=== PATIENT | female | born 1985 | race Hispanic/Latino ===

== ENCOUNTER 2021-04-04 17:50 | Emergency (ER) | payer OTHER ==
[2021-04-04 18:51] LABS: #Eosinphils 0.2 10x3/uL (0.0-0.5); #Monocytes 0.5 10x3/uL (0.0-1.1); #Neutrophils 5.5 10x3/uL (1.5-8.4); %Basophils 0.3 % (0.0-2.0); %Eosinophils 2.3 % (0.0-6.0); %Lymphocytes 30.6 % (18.0-47.0); %Monocytes 5.4 % (0.0-10.0); %Neutrophils 61.2 % (40.0-75.0); Hemoglobin 12.6 g/dL (12.0-15.5); Mean Corpuscular HGB CONC 32.9 g/dL (32.0-36.0); Mean Corpuscular Hemoglobin 27.6 pg (27.0-33.0); Mean Corpuscular Volume 83.8 fl (81.6-98.3); Mean Platelet Volume 9.3 fl (7.4-10.4); Platelet Count 340 10x3/uL (150-450); RBC Distribution Width 13.8 % (11.5-14.5); Red Blood Cell (RBC) Count 4.57 10x6/uL (3.90-5.03)
[2021-04-04 19:02] LABS: BHCG - Serum Negative (NEGATIVE); Pregs Control Background? CLEAR/WHITE (CLR/WHITE); Pregs Control Bar Appear? YES (CONTROL BAR)
[2021-04-04] MEDS ORDERED: diphenhydrAMINE 50 MG/ML VIAL ONE (19:04)
[2021-04-04] MEDS ORDERED: Metoclopramide HCl 10 MG/2 ML VIAL ONE (19:05)
[2021-04-04] MEDS ORDERED: Ketorolac Tromethamine 30 MG/ML VIAL ONE (19:05)
[2021-04-04 19:17] LABS: ALT (SGPT) 30 U/L (8-55); AST (SGOT) 25 U/L (5-34); Albumin 3.8 g/dL (3.5-5.0); Alkaline Phosphatase 78 U/L (40-110); Anion Gap 14 mmol/L (10-20); BUN (Urea Nitrogen) 9 mg/dL (7.0-18.7); Bilirubin, Total 0.2 mg/dL (0.2-1.2); Calc. Creatinine Clearance 0 mL/min (70-130); Calcium 9.3 mg/dL (7.8-10.44); Carbon Dioxide 22 mmol/L (22-29); Chloride 106 mmol/L (98-107); Globulin 3.5 g/dL (2.4-3.5); Glucose 124 mg/dL (70-105); Protein, Total 7.3 g/dL (6.0-8.3); Sodium 139 mmol/L (136-145)
[2021-04-04] MEDS ORDERED: Potassium Chloride 20 MEQ TAB ONE (19:40)
[2021-04-04] MEDS ORDERED: Magnesium 2 GM/50 ML BAG (IN WATER) ONE (20:39)
[2021-04-04] MEDS ORDERED: Dexamethasone 10 MG/ML VIAL ONE (20:39)
== END 2021-04-04 20:25 | disposition home or self-care (01) ==
LOC: CSHERS 17:50
DX: G43.109 Migraine with aura, not intractable, without status migrainosus (principal); E87.6 Hypokalemia; I10 Essential (primary) hypertension
CPT/HCPCS: 70450; 80053; 83735; 84703; 85025; 94760; 96365; 96366; 96368; 96375; J1100; J1200; J1885; J2765; J3475

== ENCOUNTER 2021-08-23 08:37 | Outpatient (CLI) | payer BC ==
[2021-08-23 10:27] LABS: Anion Gap 15 mmol/L (10-20); BUN (Urea Nitrogen) 11 mg/dL (7.0-18.7); Calc. Creatinine Clearance 0 mL/min (70-130); Carbon Dioxide 23 mmol/L (22-29); Chloride 104 mmol/L (98-107); Glucose 101 mg/dL (70-105); Potassium 3.6 mmol/L (3.5-5.1); Sodium 138 mmol/L (136-145)
[2021-08-23 10:31] LABS: BHCG - Serum Negative (NEGATIVE); Pregs Control Background? CLEAR/WHITE (CLR/WHITE); Pregs Control Bar Appear? YES (CONTROL BAR)
[2021-08-23 19:51] LABS: SARS-CoV-2 PCR by NAA Not Detected (NotDetected)
== END 2021-08-23 08:38 | disposition home or self-care (01) ==
LOC: CSHLAB 08:37
PROVIDERS: ATTEND Surgery
DX: Z01.818 Encounter for other preprocedural examination (principal); Z20.822 Contact with and (suspected) exposure to COVID-19; K42.9 Umbilical hernia without obstruction or gangrene; E66.01 Morbid (severe) obesity due to excess calories
CPT/HCPCS: 80048; 84703; 93005; 93010; U0003; U0005

== ENCOUNTER 2021-09-27 08:44 | Outpatient (CLI) | payer BC ==
[2021-09-27 09:53] LABS: BHCG - Serum POSITIVE (NEGATIVE); Pregs Control Background? CLEAR/WHITE (CLR/WHITE); Pregs Control Bar Appear? YES (CONTROL BAR)
== END 2021-09-27 08:45 | disposition home or self-care (01) ==
LOC: CSHLAB 08:44
PROVIDERS: ATTEND Surgery
DX: Z01.812 Encounter for preprocedural laboratory examination (principal); Z20.822 Contact with and (suspected) exposure to COVID-19; K42.9 Umbilical hernia without obstruction or gangrene; E66.01 Morbid (severe) obesity due to excess calories
CPT/HCPCS: 84703; U0003; U0005

== ENCOUNTER 2021-10-11 18:38 | Emergency (ER) | payer BC ==
[2021-10-11 21:53] LABS: Bilirubin Neg (Negative); Blood, Urine 25 (Negative); Clarity Clear (Clear); Glucose, Urine (Dipstick) Normal (Negative); Ketone, Urine Negative (Negative); Leukocyte Negative (Negative); Nitrite Negative (Negative); Protein, Urine (Dipstick) Negative (Neg-Trace); Specific Gravity, Urine 1.015 (1.002-1.036); Urobilinogen Normal mg/dL (Less than 2)
[2021-10-11 21:55] LABS: ALT (SGPT) 45 U/L (8-55); AST (SGOT) 29 U/L (5-34); Albumin 3.6 g/dL (3.5-5.0); Alkaline Phosphatase 63 U/L (40-110); Anion Gap 12 mmol/L (10-20); BUN (Urea Nitrogen) 12 mg/dL (7.0-18.7); Bilirubin, Total 0.2 mg/dL (0.2-1.2); Calc. Creatinine Clearance 0 mL/min (70-130); Calcium 8.7 mg/dL (7.8-10.44); Carbon Dioxide 21 mmol/L (22-29); Chloride 105 mmol/L (98-107); Globulin 2.7 g/dL (2.4-3.5); Glucose 112 mg/dL (70-105); Potassium 3.3 mmol/L (3.5-5.1); Protein, Total 6.3 g/dL (6.0-8.3); Sodium 135 mmol/L (136-145)
[2021-10-11 22:09] LABS: #Eosinphils 0.1 10x3/uL (0.0-0.5); #Monocytes 0.7 10x3/uL (0.0-1.1); #Neutrophils 3.6 10x3/uL (1.5-8.4); %Basophils 0.3 % (0.0-2.0); %Lymphocytes 33.1 % (18.0-47.0); %Monocytes 10.4 % (0.0-10.0); %Neutrophils 53.7 % (40.0-75.0); Hemoglobin 11.8 g/dL (12.0-15.5); Mean Corpuscular HGB CONC 33.9 g/dL (32.0-36.0); Mean Corpuscular Hemoglobin 29.3 pg (27.0-33.0); Mean Corpuscular Volume 86.4 fl (81.6-98.3); Mean Platelet Volume 9.3 fl (7.4-10.4); Platelet Count 272 10x3/uL (150-450); RBC Distribution Width 12.7 % (11.5-14.5); Red Blood Cell (RBC) Count 4.03 10x6/uL (3.90-5.03); White Blood Cell (WBC) Count 6.7 10x3/uL (3.5-10.5)
[2021-10-11 22:10] LABS: Bacteria/HPF Rare-Few HPF (None Seen); RBC/HPF 0-3 HPF (0-3); Squamous Epithelial 0-3 HPF (0-3); WBC/HPF None Seen HPF (0-3)
== END 2021-10-11 22:55 | disposition home or self-care (01) ==
LOC: CSHERS 18:38
DX: O20.0 Threatened abortion (principal); O16.1 Unspecified maternal hypertension, first trimester; Z3A.01 Less than 8 weeks gestation of pregnancy
CPT/HCPCS: 36415; 76856; 80053; 81003; 81015; 84702; 85025; 86900; 86901

== ENCOUNTER 2021-10-18 15:36 | Emergency (ER) | payer BC ==
[2021-10-18 16:51] LABS: #Eosinphils 0.2 10x3/uL (0.0-0.5); #Monocytes 0.8 10x3/uL (0.0-1.1); #Neutrophils 3.7 10x3/uL (1.5-8.4); %Basophils 0.6 % (0.0-2.0); %Eosinophils 2.4 % (0.0-6.0); %Lymphocytes 33.9 % (18.0-47.0); %Monocytes 10.7 % (0.0-10.0); %Neutrophils 52.3 % (40.0-75.0); Hemoglobin 13.3 g/dL (12.0-15.5); Mean Corpuscular HGB CONC 34.2 g/dL (32.0-36.0); Mean Corpuscular Hemoglobin 29.4 pg (27.0-33.0); Mean Corpuscular Volume 85.9 fl (81.6-98.3); Mean Platelet Volume 9.3 fl (7.4-10.4); Platelet Count 296 10x3/uL (150-450); RBC Distribution Width 12.8 % (11.5-14.5); Red Blood Cell (RBC) Count 4.53 10x6/uL (3.90-5.03); White Blood Cell (WBC) Count 7.1 10x3/uL (3.5-10.5)
[2021-10-18 17:39] LABS: Bilirubin Neg (Negative); Blood, Urine 150 (Negative); Clarity Clear (Clear); Glucose, Urine (Dipstick) Normal (Negative); Ketone, Urine Negative (Negative); Leukocyte Negative (Negative); Nitrite Negative (Negative); Protein, Urine (Dipstick) Negative (Neg-Trace); Specific Gravity, Urine 1.005 (1.002-1.036); Urobilinogen Normal mg/dL (Less than 2)
[2021-10-18 17:59] LABS: Bacteria/HPF Rare-Few HPF (None Seen); RBC/HPF 0-3 HPF (0-3); Squamous Epithelial 0-3 HPF (0-3); WBC/HPF 0-3 HPF (0-3)
== END 2021-10-18 18:37 | disposition home or self-care (01) ==
LOC: CSHERS 15:36
DX: O20.9 Hemorrhage in early pregnancy, unspecified (principal); O16.1 Unspecified maternal hypertension, first trimester; Z3A.01 Less than 8 weeks gestation of pregnancy
CPT/HCPCS: 81003; 81015; 84702; 85025; 86900; 86901

== ENCOUNTER 2021-10-31 00:21 | Emergency (ER) | payer BC ==
[2021-10-31 01:01] LABS: Bilirubin Neg (Negative); Blood, Urine 250 (Negative); Clarity Clear (Clear); Glucose, Urine (Dipstick) Normal (Negative); Ketone, Urine Negative (Negative); Leukocyte Negative (Negative); Nitrite Negative (Negative); Protein, Urine (Dipstick) 30 mg/dl (Neg-Trace); Specific Gravity, Urine 1.005 (1.002-1.036); Urobilinogen Normal mg/dL (Less than 2); pH, Urine 6.5 (5.0-9.0)
[2021-10-31] MEDS ORDERED: traMADol HCl 50 MG TAB ONE (01:17)
[2021-10-31 01:30] LABS: Bacteria/HPF Rare-Few HPF (None Seen); Squamous Epithelial None Seen HPF (0-3); WBC/HPF None Seen HPF (0-3)
== END 2021-10-31 03:03 | disposition home or self-care (01) ==
LOC: CSHERS 00:21
DX: O03.9 Complete or unspecified spontaneous abortion without complication (principal); I10 Essential (primary) hypertension
CPT/HCPCS: 36415; 76856; 81003; 81015; 84702

== ENCOUNTER 2021-11-15 09:43 | Outpatient (CLI) | payer BC | END 2021-11-15 09:44 | disposition home or self-care (01) | LOC: CSHLAB 09:43 | PROVIDERS: ATTEND Surgery | DX: K42.9 Umbilical hernia without obstruction or gangrene (principal); E66.01 Morbid (severe) obesity due to excess calories; Z20.822 Contact with and (suspected) exposure to COVID-19 | CPT/HCPCS: 87811 ==

== ENCOUNTER 2021-11-18 09:06 | Day surgery (SDC) | payer BC ==
[2021-11-16 12:13] VITALS: BMI 40.8
[2021-11-18] MEDS ORDERED: Bupivacaine PF 0.5% 30 ML VIAL ONE (09:51)
[2021-11-18] MEDS ORDERED: EPINEPHrine 1 MG/ML AMP ONE (09:51)
[2021-11-18] MEDS ORDERED: CEFAZOLIN 2 GM VIAL ONE (10:20)
[2021-11-18] MEDS ORDERED: PROPOFOL 20 ML ONE (10:40)
[2021-11-18] MEDS ORDERED: Lidocaine 1% PF 5 ML VIAL ONE (10:41)
[2021-11-18] MEDS ORDERED: Rocuronium Bromide 10 MG/ML (10ML VIAL) ONE (10:41)
[2021-11-18] MEDS ORDERED: Fentanyl 100 MCG/2 ML VIAL ONE ×3 (10:41→12:51)
[2021-11-18] MEDS ORDERED: Acetaminophen 325 MG TAB PO PRN (10:54)
[2021-11-18] MEDS ORDERED: HYDROcodone/Acetaminophen 5/325 mg Tablet PO PRN (10:54)
[2021-11-18] MEDS ORDERED: Ondansetron PF 4 MG/2 ML Vial ONE (11:01)
[2021-11-18] MEDS ORDERED: Dexamethasone 4 mg/ml Vial ONE (11:01)
[2021-11-18] MEDS ORDERED: Ketorolac Tromethamine 30 MG/ML VIAL ONE (11:02)
[2021-11-18] MEDS ORDERED: Glycopyrrolate 0.2 MG/ML 5 ML SYRINGE ONE (12:00)
[2021-11-18] MEDS ORDERED: HYDROcodone/Acetaminophen 5/325 mg Tablet ONE (14:03)
== END 2021-11-18 14:35 | disposition home or self-care (01) ==
LOC: CSHSDC 09:06
PROVIDERS: ATTEND Surgery
PROC: 0WUF4JZ Supplement Abdominal Wall with Synthetic Substitute, Percutaneous Endoscopic Approach (ICD-10-PCS; principal; 2021-11-18)
DX: K43.2 Incisional hernia without obstruction or gangrene (principal); K42.9 Umbilical hernia without obstruction or gangrene; I10 Essential (primary) hypertension; R73.03 Prediabetes; G43.909 Migraine, unspecified, not intractable, without status migrainosus; F41.9 Anxiety disorder, unspecified; E66.01 Morbid (severe) obesity due to excess calories; Z68.41 Body mass index [BMI] 40.0-44.9, adult; Z79.899 Other long term (current) drug therapy; Z20.822 Contact with and (suspected) exposure to COVID-19; Z98.890 Other specified postprocedural states
CPT/HCPCS: C1713; J0171; J0690; J1100; J1885; J2405; J2704; J3010; S0020

== ENCOUNTER 2022-02-11 17:22 | Emergency (ER) | payer BC ==
[~2022-02-11 17:22] MED LIST: Iopamidol 370 76% 100 ML VIAL ONE
[2022-02-11 18:20] LABS: #Basophils 0.1 10x3/uL (0.0-0.2); #Eosinphils 0.3 10x3/uL (0.0-0.5); #Monocytes 0.7 10x3/uL (0.0-1.1); #Neutrophils 3.5 10x3/uL (1.5-8.4); %Basophils 0.9 % (0.0-2.0); %Eosinophils 4.7 % (0.0-6.0); %Lymphocytes 30.6 % (18.0-47.0); %Monocytes 10.7 % (0.0-10.0); %Neutrophils 52.8 % (40.0-75.0); Hemoglobin 13.7 g/dL (12.0-15.5); Mean Corpuscular HGB CONC 34.4 g/dL (32.0-36.0); Mean Corpuscular Hemoglobin 28.2 pg (27.0-33.0); Mean Corpuscular Volume 82.1 fl (81.6-98.3); Mean Platelet Volume 9.1 fl (7.4-10.4); Platelet Count 344 10x3/uL (150-450); RBC Distribution Width 13.2 % (11.5-14.5); Red Blood Cell (RBC) Count 4.85 10x6/uL (3.90-5.03); White Blood Cell (WBC) Count 6.6 10x3/uL (3.5-10.5)
[2022-02-11 18:37] LABS: ALT (SGPT) 42 U/L (8-55); AST (SGOT) 33 U/L (5-34); Alkaline Phosphatase 82 U/L (40-110); Anion Gap 16 mmol/L (10-20); BUN (Urea Nitrogen) 12 mg/dL (7.0-18.7); Bilirubin, Total 0.3 mg/dL (0.2-1.2); Calc. Creatinine Clearance 0 mL/min (70-130); Calcium 9.3 mg/dL (7.8-10.44); Carbon Dioxide 20 mmol/L (22-29); Chloride 101 mmol/L (98-107); Estimated GFR 112; Globulin 3.5 g/dL (2.4-3.5); Glucose 93 mg/dL (70-105); Lipase 29 U/L (8-78); Potassium 3.4 mmol/L (3.5-5.1); Protein, Total 7.5 g/dL (6.0-8.3); Sodium 134 mmol/L (136-145)
[2022-02-11] MEDS ORDERED: Aspirin Chewable 81 MG TAB ONE (18:52)
[2022-02-11 19:09] LABS: BHCG - Serum Negative (NEGATIVE); Pregs Control Background? CLEAR/WHITE (CLR/WHITE); Pregs Control Bar Appear? YES (CONTROL BAR)
[2022-02-11] MEDS ORDERED: Acetaminophen 500 MG TAB ONE (22:19)
== END 2022-02-11 22:30 | disposition home or self-care (01) ==
LOC: CSHERS 17:22
DX: R07.89 Other chest pain (principal); R91.1 Solitary pulmonary nodule; I10 Essential (primary) hypertension
CPT/HCPCS: 71045; 71275; 80053; 83690; 84484; 84703; 85025; 85379; 93005; Q9967

== ENCOUNTER 2022-04-20 15:02 | Emergency (ER) | payer BC | END 2022-04-20 16:15 | disposition left against medical advice (07) | LOC: CSHERS 15:02 | DX: Z53.21 Procedure and treatment not carried out due to patient leaving prior to being seen by health care provider (principal) ==

== ENCOUNTER 2022-06-02 22:28 | Emergency (ER) | payer BC ==
[2022-06-02 23:11] LABS: Bilirubin Neg (Negative); Blood, Urine 10 (Negative); Clarity Clear (Clear); Glucose, Urine (Dipstick) Normal (Negative); Ketone, Urine Negative (Negative); Leukocyte Negative (Negative); Nitrite Negative (Negative); Protein, Urine (Dipstick) Negative (Neg-Trace); Urobilinogen Normal mg/dL (Less than 2)
[2022-06-02 23:26] LABS: Bacteria/HPF Rare-Few HPF (None Seen); RBC/HPF 0-3 HPF (0-3); Squamous Epithelial 0-3 HPF (0-3); WBC/HPF 0-3 HPF (0-3)
[2022-06-02] MEDS ORDERED: Acetaminophen 500 MG TAB ONE ×2 (23:37→23:41)
[2022-06-02 23:42] LABS: #Eosinphils 0.2 10x3/uL (0.0-0.5); #Monocytes 0.7 10x3/uL (0.0-1.1); #Neutrophils 3.8 10x3/uL (1.5-8.4); %Basophils 0.5 % (0.0-2.0); %Eosinophils 2.6 % (0.0-6.0); %Lymphocytes 34.1 % (18.0-47.0); %Monocytes 10.1 % (0.0-10.0); %Neutrophils 52.2 % (40.0-75.0); Mean Corpuscular HGB CONC 33.8 g/dL (32.0-36.0); Mean Corpuscular Hemoglobin 28.3 pg (27.0-33.0); Mean Corpuscular Volume 83.7 fl (81.6-98.3); Mean Platelet Volume 8.9 fl (7.4-10.4); Platelet Count 356 10x3/uL (150-450); RBC Distribution Width 13.7 % (11.5-14.5); White Blood Cell (WBC) Count 7.3 10x3/uL (3.5-10.5)
[2022-06-02 23:44] LABS: BHCG - Serum POSITIVE (NEGATIVE); Pregs Control Background? CLEAR/WHITE (CLR/WHITE); Pregs Control Bar Appear? YES (CONTROL BAR)
[2022-06-02 23:57] LABS: ALT (SGPT) 49 U/L (8-55); AST (SGOT) 36 U/L (5-34); Albumin 3.9 g/dL (3.5-5.0); Alkaline Phosphatase 76 U/L (40-110); Anion Gap 15 mmol/L (10-20); BUN (Urea Nitrogen) 10 mg/dL (7.0-18.7); Bilirubin, Total 0.3 mg/dL (0.2-1.2); Calc. Creatinine Clearance 0 mL/min (70-130); Calcium 9.1 mg/dL (7.8-10.44); Carbon Dioxide 19 mmol/L (22-29); Chloride 106 mmol/L (98-107); Estimated GFR 105; Globulin 3.2 g/dL (2.4-3.5); Glucose 94 mg/dL (70-105); Potassium 3.6 mmol/L (3.5-5.1); Protein, Total 7.1 g/dL (6.0-8.3); Sodium 136 mmol/L (136-145)
== END 2022-06-03 00:53 | disposition home or self-care (01) ==
LOC: CSHERS 22:28
DX: O20.0 Threatened abortion (principal); Z3A.01 Less than 8 weeks gestation of pregnancy; I10 Essential (primary) hypertension; Z79.899 Other long term (current) drug therapy
CPT/HCPCS: 76801; 80053; 81003; 81015; 84702; 84703; 85025; 99284

== ENCOUNTER 2022-06-10 19:14 | Emergency (ER) | payer BC | END 2022-06-10 20:15 | disposition left against medical advice (07) | LOC: CSHERS 19:14 | DX: O99.891 Other specified diseases and conditions complicating pregnancy (principal); M94.0 Chondrocostal junction syndrome [Tietze]; O10.911 Unspecified pre-existing hypertension complicating pregnancy, first trimester; O09.511 Supervision of elderly primigravida, first trimester; Z3A.08 8 weeks gestation of pregnancy ==

== ENCOUNTER 2022-07-18 15:27 | Emergency (ER) | payer BC ==
[2022-07-18 16:24] LABS: Bilirubin Neg (Negative); Blood, Urine 250 (Negative); Clarity Clear (Clear); Glucose, Urine (Dipstick) Normal (Negative); Ketone, Urine Negative (Negative); Leukocyte Negative (Negative); Nitrite Negative (Negative); Protein, Urine (Dipstick) Negative (Neg-Trace); Urobilinogen Normal mg/dL (Less than 2); pH, Urine 6.5 (5.0-9.0)
[2022-07-18 16:42] LABS: #Eosinphils 0.2 10x3/uL (0.0-0.5); #Monocytes 0.7 10x3/uL (0.0-1.1); #Neutrophils 4.2 10x3/uL (1.5-8.4); %Basophils 0.5 % (0.0-2.0); %Eosinophils 2.4 % (0.0-6.0); %Lymphocytes 32.2 % (18.0-47.0); %Monocytes 8.9 % (0.0-10.0); %Neutrophils 55.9 % (40.0-75.0); Hemoglobin 12.9 g/dL (12.0-15.5); Mean Corpuscular HGB CONC 33.8 g/dL (32.0-36.0); Mean Corpuscular Hemoglobin 28.4 pg (27.0-33.0); Mean Platelet Volume 9.8 fl (7.4-10.4); Platelet Count 316 10x3/uL (150-450); Red Blood Cell (RBC) Count 4.55 10x6/uL (3.90-5.03); White Blood Cell (WBC) Count 7.6 10x3/uL (3.5-10.5)
[2022-07-18 16:48] LABS: Bacteria/HPF None Seen HPF (None Seen); RBC/HPF None Seen HPF (0-3); Squamous Epithelial 0-3 HPF (0-3); WBC/HPF 0-3 HPF (0-3)
[2022-07-18] MEDS ORDERED: Acetaminophen 500 MG TAB ONE (17:04)
[2022-07-18 17:06] LABS: ALT (SGPT) 42 U/L (8-55); AST (SGOT) 30 U/L (5-34); Albumin 3.8 g/dL (3.5-5.0); Alkaline Phosphatase 61 U/L (40-110); Anion Gap 15 mmol/L (10-20); BUN (Urea Nitrogen) 9 mg/dL (7.0-18.7); Bilirubin, Total 0.3 mg/dL (0.2-1.2); Calc. Creatinine Clearance 0 mL/min (70-130); Calcium 9.7 mg/dL (7.8-10.44); Carbon Dioxide 21 mmol/L (22-29); Chloride 104 mmol/L (98-107); Estimated GFR 114; Globulin 3.1 g/dL (2.4-3.5); Glucose 79 mg/dL (70-105); Potassium 3.7 mmol/L (3.5-5.1); Protein, Total 6.9 g/dL (6.0-8.3); Sodium 136 mmol/L (136-145)
== END 2022-07-18 18:42 | disposition home or self-care (01) ==
LOC: CSHERS 15:27
DX: O20.0 Threatened abortion (principal); I10 Essential (primary) hypertension; Z3A.11 11 weeks gestation of pregnancy
CPT/HCPCS: 76856; 80053; 81003; 81015; 84702; 85025; 86900; 86901

== ENCOUNTER 2022-10-28 20:28 | Day surgery (SDC) | payer BC ==
[2022-10-28 20:53] VITALS: BMI 41.7
== END 2022-10-28 22:28 | disposition home or self-care (01) ==
LOC: CSHLD/OP 20:28
PROVIDERS: ATTEND Obstetrics & Gynecology
DX: O36.8120 Decreased fetal movements, second trimester, not applicable or unspecified (principal); Z79.84 Long term (current) use of oral hypoglycemic drugs; Z79.82 Long term (current) use of aspirin; Z79.899 Other long term (current) drug therapy; Z3A.26 26 weeks gestation of pregnancy
CPT/HCPCS: 99282

== ENCOUNTER 2022-11-19 19:38 | Day surgery (SDC) | payer BC ==
[2022-11-19 20:23] VITALS: BMI 42.7
[2022-11-19] MEDS ORDERED: hydrALAZINE 20 MG/ML VIAL SLOW IVP PRN (20:29)
[2022-11-19] MEDS ORDERED: metFORMIN 500 MG TAB PO SCH ×2 (21:00→21:30)
[2022-11-19] MEDS ORDERED: Labetalol HCl 200 MG TAB PO SCH ×2 (21:00)
[2022-11-19 21:33] VITALS: BP 152/82
[2022-11-19 22:11] LABS: Creatinine, Urine 66.53 mg/dL (47-110); Protein, Urine Random Quant Less than 10 mg/dL (1-14)
== END 2022-11-19 23:50 | disposition home or self-care (01) ==
LOC: CSHLD/OP 19:38
PROVIDERS: ATTEND Obstetrics & Gynecology
DX: O36.8130 Decreased fetal movements, third trimester, not applicable or unspecified (principal); O10.913 Unspecified pre-existing hypertension complicating pregnancy, third trimester; O34.211 Maternal care for low transverse scar from previous cesarean delivery; Z79.899 Other long term (current) drug therapy; Z3A.29 29 weeks gestation of pregnancy
CPT/HCPCS: 76819; 82570; 84156; 99283

== ENCOUNTER 2022-11-28 17:30 | Day surgery (SDC) | payer BC ==
[2022-11-28] MEDS ORDERED: hydrALAZINE 20 MG/ML VIAL SLOW IVP PRN (18:59)
[2022-11-28 19:18] VITALS: BMI 43.0
[2022-11-28 19:24] LABS: Bilirubin Neg (Negative); Blood, Urine Negative (Negative); Clarity Clear (Clear); Glucose, Urine (Dipstick) Normal (Negative); Ketone, Urine 5 mg/dL (Negative); Leukocyte Negative (Negative); Nitrite Negative (Negative); Protein, Urine (Dipstick) 15 mg/dl (Neg-Trace); Specific Gravity, Urine 1.025 (1.005-1.030); Urobilinogen Normal mg/dL (Less than 2)
[2022-11-28 19:34] LABS: Fetal Membranes Rupture No Membranes Rupture (No Rupture)
[2022-11-28 19:41] LABS: Bacteria/HPF Rare-Few HPF (None Seen); CAUTI Indications for Culture Pregnancy; Calcium Oxalate Crystals 1+ HPF (None Seen); Mucous/LPF 1+ LPF (<2+); RBC/HPF 0-3 HPF (0-3); WBC/HPF 0-3 HPF (0-3)
[2022-11-28 19:43] LABS: Urine Culture Reflex Yes Yes
[2022-11-28] MEDS ORDERED: Labetalol HCl 200 MG TAB PO SCH (20:00)
== END 2022-11-28 21:30 | disposition home or self-care (01) ==
LOC: CSHLD/OP 17:30
PROVIDERS: ATTEND Obstetrics & Gynecology
DX: Z03.71 Encounter for suspected problem with amniotic cavity and membrane ruled out (principal); O99.891 Other specified diseases and conditions complicating pregnancy; R10.32 Left lower quadrant pain; O34.211 Maternal care for low transverse scar from previous cesarean delivery; O10.913 Unspecified pre-existing hypertension complicating pregnancy, third trimester; Z79.899 Other long term (current) drug therapy; Z3A.30 30 weeks gestation of pregnancy
CPT/HCPCS: 81001; 84112; 87086; 99284

== ENCOUNTER 2022-12-28 12:06 | Day surgery (SDC) | payer BC ==
[2022-12-28 13:05] VITALS: BMI 44.4
[2022-12-28] MEDS ORDERED: hydrALAZINE 20 MG/ML VIAL SLOW IVP PRN (14:33)
== END 2022-12-28 14:45 | disposition home or self-care (01) ==
LOC: CSHLD/OP 12:06
PROVIDERS: ATTEND Obstetrics & Gynecology
DX: O47.03 False labor before 37 completed weeks of gestation, third trimester (principal); O34.211 Maternal care for low transverse scar from previous cesarean delivery; O24.419 Gestational diabetes mellitus in pregnancy, unspecified control; O10.913 Unspecified pre-existing hypertension complicating pregnancy, third trimester; Z79.899 Other long term (current) drug therapy; Z98.890 Other specified postprocedural states; Z3A.34 34 weeks gestation of pregnancy

== ENCOUNTER 2023-02-13 17:50 | Emergency (ER) | payer BC ==
[2023-02-13 19:32] LABS: Bilirubin Neg (Negative); Blood, Urine 50 (Negative); Clarity Clear (Clear); Glucose, Urine (Dipstick) Normal (Negative); Ketone, Urine Negative (Negative); Leukocyte 25 (Negative); Nitrite Negative (Negative); Protein, Urine (Dipstick) 30 mg/dl (Neg-Trace); Urobilinogen Normal mg/dL (Less than 2)
[2023-02-13 19:43] LABS: Bacteria/HPF 3+ HPF (None Seen); CAUTI Indications for Culture Pelvic or flank pain; Mucous/LPF 3+ LPF (<2+); RBC/HPF 0-3 HPF (0-3); WBC/HPF 0-3 HPF (0-3)
[2023-02-13 19:44] LABS: Urine Culture Reflex No No
== END 2023-02-13 19:43 | disposition home or self-care (01) ==
LOC: CSHERS 17:50
DX: O91.22 Nonpurulent mastitis associated with the puerperium (principal); O99.63 Diseases of the digestive system complicating the puerperium; K59.00 Constipation, unspecified; O99.893 Other specified diseases and conditions complicating puerperium; N89.8 Other specified noninflammatory disorders of vagina; O16.5 Unspecified maternal hypertension, complicating the puerperium
CPT/HCPCS: 81001; 87480; 87510; 87660; 99284

== ENCOUNTER 2023-03-03 15:56 | Emergency (ER) | payer BC | END 2023-03-03 18:23 | disposition left against medical advice (07) | LOC: CSHERS 15:56 | DX: Z53.21 Procedure and treatment not carried out due to patient leaving prior to being seen by health care provider (principal) ==

== ENCOUNTER 2024-12-15 18:10 | Emergency (ER) | payer BC ==
[~2024-12-15 18:10] MED LIST changes: +Iopamidol 300 61% 100 ML VIAL FS ONE; -Iopamidol 370 76% 100 ML VIAL ONE
[2024-12-15 19:08] LABS: Glucose, Urine (Dipstick) Normal (Negative); Leukocyte Negative (Negative); Protein, Urine (Dipstick) 30 mg/dl (Neg-Trace); Specific Gravity, Urine 1.020 (1.005-1.030)
[2024-12-15 19:18] LABS: ALT (SGPT) 150 U/L (Less than 34); AST (SGOT) 128 U/L (11-34); Albumin 4.1 g/dL (3.1-4.5); Alkaline Phosphatase 96 U/L (40-110); Anion Gap 16 mmol/L (10-20); BUN (Urea Nitrogen) 14 mg/dL (7.0-18.7); Bilirubin, Total 0.2 mg/dL (0.3-1.2); Calc. Creatinine Clearance 0 mL/min (70-130); Calcium 9.5 mg/dL (7.8-10.44); Carbon Dioxide 20 mmol/L (22-29); Chloride 104 mmol/L (98-107); Globulin 4.0 g/dL (2.4-3.5); Glucose 150 mg/dL (70-105); Lipase 35 U/L (8-78); Potassium 3.1 mmol/L (3.5-5.1); Sodium 137 mmol/L (136-145)
[2024-12-15 19:19] LABS: Bacteria/HPF Rare-Few HPF (None Seen); CAUTI Indications for Culture Pelvic or flank pain; RBC/HPF None Seen HPF (0-3); WBC/HPF None Seen HPF (0-3)
[2024-12-15 19:21] LABS: Urine Culture Reflex No No
[2024-12-15 19:39] LABS: #Basophils 0.05 10x3/uL (0.0-0.2); #Eosinophils 0.23 10x3/uL (0.0-0.5); #Monocytes 0.50 10x3/uL (0.0-1.1); #Neutrophils 4.97 10x3/uL (1.5-8.4); %Basophils 0.7 % (0.0-2.0); %Eosinophils 3.0 % (0.0-6.0); %Lymphocytes 24.5 % (18.0-47.0); %Monocytes 6.5 % (0.0-10.0); %Neutrophils 65.0 % (40.0-75.0); Hematocrit 41.1 % (34.9-44.5); Hemoglobin 14.1 g/dL (12.0-15.5); Mean Corpuscular Hemoglobin 29.3 pg (27.0-33.0); Mean Corpuscular Volume 85.4 fL (81.6-98.3); Platelet Count 299 10x3/uL (150-450); Red Blood Cell (RBC) Count 4.81 10x6/uL (3.90-5.03); White Blood Cell (WBC) Count 7.64 10x3/uL (3.5-10.5)
[2024-12-15 19:49] LABS: BHCG - Serum Negative (NEGATIVE); Pregs Control Background? CLEAR/WHITE (CLR/WHITE); Pregs Control Bar Appear? YES (CONTROL BAR)
[2024-12-15] MEDS ORDERED: Ondansetron PF 4 MG/2 ML Vial ONE (20:05)
[2024-12-15] MEDS ORDERED: Ketorolac Tromethamine 30 MG (1 mL) VIAL ONE (20:05)
== END 2024-12-15 22:00 | disposition home or self-care (01) ==
LOC: CSHERS 18:10
DX: A08.4 Viral intestinal infection, unspecified (principal); K76.0 Fatty (change of) liver, not elsewhere classified; R91.1 Solitary pulmonary nodule; I10 Essential (primary) hypertension; F17.290 Nicotine dependence, other tobacco product, uncomplicated
CPT/HCPCS: 36415; 74177; 80053; 81001; 83690; 84703; 85025; J1885; J2405